=== PATIENT | female | born 1965 | race Asian ===

== ENCOUNTER 2016-09-13 20:36 | Emergency (ER) | payer OTHER ==
[~2016-09-13] VITALS: Ht 148.6 cm; Wt 47.0 kg
[2016-09-13 20:39] VITALS: BP 177/96; PULSE 86; RESP 15; TEMP 99.5; O2SAT 98
--- NOTE | 2016-09-13 20:51 | PD ---
Physical Exam Time Seen by Provider: 20:47 Narrative 51yo F c/o L chest pain yesterday w/ diffisculty breathing yesterday due to pain. Pain is now to the left lateral rib cage area and left upper shoulder area. Denies SOB at this time. Denies heart palpitations. Took 2 ASA 81mg w/ good relief of pain. Patient seen in triage. VS reviewed. Awaiting bed placement. Data Data Last Documented VS Vital Signs Date Time Temp Pulse Resp B/P Pulse Ox O2 Delivery O2 Flow Rate FiO2 09/13/16 20:39 99.5 86 15 177/96 98 Room Air MDM Supervised Visit with WOODY: Parris Ledezma September 13, 2016 20:51
[2016-09-13 21:03] VITALS: O2SAT 99
[2016-09-13] MEDS ORDERED: SODIUM CHLORIDE 0.9% FLUSH 10 ML FLUSH IVF PRN (21:15)
--- NOTE | 2016-09-13 21:17 | PD ---
HPI Chief Complaint: Chest Pain Time Seen by Provider: 21:07 Travel History International Travel<30 days: No Contact w/Intl Traveler<30days: No Traveled to known affect area: No History of Present Illness HPI 51-year-old female with hypertension who presents for evaluation of chest pain. She reports that yesterday at 10 PM while watching TV she developed some pain in the left trapezius region which then seemed to radiate into the left inferior breast and lateral left rib cage. The pain is a sharp pain that is worse with movement, inspiration. There is no exertional component to the pain. The pain has persisted since then which prompted evaluation. She did take 2 aspirin prior to arrival which seemed to help with her symptoms. She endorses a cough that has been ongoing for 3 weeks. Initially was a productive cough, it is now dry. Her has had a similar lingering cough. She denies nausea or vomiting, shortness of breath other she does note pain when breathing in deep, fevers or chills, abdominal pain, calf swelling. She reports recent travel, she flew to and from [place] 3-4 weeks ago. No personal history of coronary artery disease. She notes a negative stress test 3 years ago. Family history includes paternal PR in his 70s. No history of DVT, PE. No tobacco use, no recent surgery, no oral contraceptive use. No other complaints. PFSH Past Medical History Medical History: Denies Significant Hx Diminished Hearing: No Tetanus Vaccination: Unknown Influenza Vaccination: No ?: Not Past Surgical History Surgical History: No Previous Surgery Social History Alcohol Use: No Tobacco Use: No Substance Use: No Allergies-Medications (Allergen,Severity, Reaction): Coded Allergies: No Known Allergies (Verified , 09/13/16) Uncoded Allergies: NKDA (Allergy, Unknown, 12/30/02) NONE (Allergy, Unknown, 12/30/02) Reported Meds & Prescriptions Reported Meds & Active Scripts Active Azithromycin 250 Mg Tab 250 Mg PO DAILY 4 Days Reported Enalapril (Enalapril Maleate) 20 Mg Tab 20 Mg PO DAILY Review of Systems Except as stated in HPI: all other systems reviewed are Neg Physical Exam Narrative GENERAL: Well-developed well-nourished female in no acute distress. Resting comfortably in hospital bed. SKIN: Warm and dry. HEAD: Atraumatic. Normocephalic. EYES: Pupils equal and round. No scleral icterus. No injection or drainage. ENT: No nasal bleeding or discharge. Mucous membranes pink and moist. NECK: Trachea midline. No JVD. CARDIOVASCULAR: Regular rate and rhythm. No murmur appreciated. RESPIRATORY: No accessory muscle use. Clear to auscultation. Breath sounds equal bilaterally. GASTROINTESTINAL: Abdomen soft, non-tender, nondistended. Hepatic and splenic margins not palpable. MUSCULOSKELETAL: No obvious deformities. There is no lower extremity edema. Negative Homans bilaterally. Reproducible tenderness to palpation to the lateral left rib cage. No thoracic rashes noted. NEUROLOGICAL: Awake and alert. No obvious cranial nerve deficits. Motor grossly within normal limits. Normal speech. PSYCHIATRIC: Appropriate mood and affect; insight and judgment normal. Data Data Last Documented VS Vital Signs Date Time Temp Pulse Resp B/P Pulse Ox O2 Delivery O2 Flow Rate FiO2 09/13/16 21:03 99 Room Air 09/13/16 20:51 16 09/13/16 20:39 99.5 86 177/96 Orders Electrocardiogram (09/13/16 21:13) Basic Metabolic Panel (Bmp) (09/13/16 21:13) Ckmb (Isoenzyme) Profile (09/13/16 21:13) Complete Blood Count With Diff (09/13/16 21:13) D-Dimer (09/13/16 21:13) Magnesium (Mg) (09/13/16 21:13) Prothrombin Time / Inr (Pt) (09/13/16 21:13) Act Partial Throm Time (Ptt) (09/13/16 21:13) Troponin I (09/13/16 21:13) Chest, Single Ap (09/13/16 21:13) Ecg Monitoring (09/13/16 21:13) Bilateral Bp Monitoring (09/13/16 21:13) Iv Access Insert/Monitor (09/13/16 21:13) Oximetry (09/13/16 21:13) Oxygen Administration (09/13/16 21:13) Sodium Chloride 0.9% Flush (Ns Flush) (09/13/16 21:15) Azithromycin Inj (Zithromax Inj) (09/13/16 22:30) Ct Pulmonary Angiogram (09/13/16 22:21) Potassium Chloride (Kcl) (09/13/16 22:30) Ketorolac Inj (Toradol Inj) (09/13/16 22:30) Iohexol 350 Inj (Omnipaque 350 Inj) (09/13/16 22:50) Labs Laboratory Tests Test 09/13/16 21:00 White Blood Count 15.5 TH/MM3 Red Blood Count 3.77 MIL/MM3 Hemoglobin 11.9 GM/DL Hematocrit 35.4 % Mean Corpuscular Volume 94.0 FL Mean Corpuscular Hemoglobin 31.7 PG Mean Corpuscular Hemoglobin 33.7 % Concent Red Cell Distribution Width 12.8 % Platelet Count 457 TH/MM3 Mean Platelet Volume 7.8 FL Neutrophils (%) (Auto) 70.6 % Lymphocytes (%) (Auto) 20.4 % Monocytes (%) (Auto) 6.6 % Eosinophils (%) (Auto) 1.6 % Basophils (%) (Auto) 0.8 % Neutrophils # (Auto) 10.9 TH/MM3 Lymphocytes # (Auto) 3.2 TH/MM3 Monocytes # (Auto) 1.0 TH/MM3 Eosinophils # (Auto) 0.2 TH/MM3 Basophils # (Auto) 0.1 TH/MM3 CBC Comment DIFF FINAL Differential Comment Prothrombin Time 10.3 SEC Prothromb Time International 0.9 RATIO Ratio Activated Partial 29.6 SEC Thromboplast Time D-Dimer Quantitative (PE/DVT) 1.14 MG/L FEU Sodium Level 139 MEQ/L Potassium Level 3.2 MEQ/L Chloride Level 102 MEQ/L Carbon Dioxide Level 28.6 MEQ/L Anion Gap 8 MEQ/L Blood Urea Nitrogen 13 MG/DL Creatinine 0.87 MG/DL Estimat Glomerular Filtration 69 ML/MIN Rate Random Glucose 99 MG/DL Calcium Level 8.2 MG/DL Magnesium Level 2.4 MG/DL Total Creatine Kinase 88 U/L Troponin I LESS THAN 0.02 NG/ML MDM Medical Decision Making Medical Screen Exam Complete: Yes Emergency Medical Condition: Yes Medical Record Reviewed: Yes Interpretation(s) EKG reveals sinus rhythm, rate 81, no acute ischemic changes Differential Diagnosis Costochondritis, chest wall pain, pericarditis, myocarditis, bronchitis, pneumonia, pneumothorax, acute coronary syndrome, pulmonary embolism, aortic dissection versus shingles. Narrative Course 51-year-old female has had a cough for 3 weeks presents now with one-day history of pain in the left trapezius, left lateral and anterior lower rib cage that is reproducible with movement, inspiration. On examination the pain on the left lateral rib cage is also reproducible with palpation. Her heart score is reassuringly in the low risk category. Her history and examination most consistent with musculoskeletal chest pain likely secondary to bronchial infection that has been lingering for 3 weeks. Plan is for basic lab work, chest x-ray, EKG, ECG monitoring pulse oximetry. Given her recent travel with pleuritic component to the pain but still low likelihood of pulmonary embolism, a d-dimer has been ordered. Laboratory and imaging studies been reviewed. White count is elevated at 15.5, chest x-ray reveals some left basilar airspace disease and given her 3 week history of cough these symptoms are consistent with pneumonia. Cardiac enzymes are negative. Potassium was mildly low at 3.2, she was given 40 mEq of oral potassium chloride. The patient's d-dimer was elevated and therefore a CT pulmonary angiogram has been ordered. Toradol has been ordered for the patient' s pain, azithromycin for the patient's pneumonia. CT pulmonary angiogram is negative for pulmonary embolus. CT imaging Reveals bilateral parenchymal infiltrates. Discussed signs and symptoms that would warrant returning to the emergency room. Recommended outpatient follow-up with primary care physician. She has an appointment next week already. She is stable for discharge. Diagnosis Primary Impression: Community acquired pneumonia Additional Impressions: Hypokalemia Chest wall pain Additional Instructions: Antibiotic as prescribed. Follow up next week with primary care physician as scheduled. Return for any acutely new or worsening symptoms. Med/Other Pt SpecificInfo: Prescription(s) given Scripts Azithromycin 250 Mg [id number] Mg PO DAILY 4 Days Ref 0 Prov:Payal Fuentes DO 09/13/16 Disposition: 01 DISCHARGE HOME Condition: Stable Jaden Connors September 13, 2016 21:17
[2016-09-13] MEDS ORDERED: ENAL20TA PO (21:26)
[2016-09-13 21:56] LABS: AUTOMATED NEUTROPHIL # 10.9 TH/MM3 (1.8-7.7); BASOPHIL # 0.1 TH/MM3 (0-0.2); BASOPHIL % 0.8 % (0.0-2.0); EOSINOPHIL # 0.2 TH/MM3 (0-0.4); EOSINOPHIL % 1.6 % (0.0-4.0); HEMATOCRIT 35.4 % (35.0-46.0); HEMO FLAGS DIFF FINAL; LYMPH % 20.4 % (9.0-44.0); LYMPHOCYTE # 3.2 TH/MM3 (1.0-4.8); MEAN CORPUSCULAR HEMOGLOBIN 31.7 PG (27.0-34.0); MEAN CORPUSCULAR HGB CONC 33.7 % (32.0-36.0); MONO % 6.6 % (0.0-8.0); NEUT % 70.6 % (16.0-70.0); PLATELET COUNT 457 TH/MM3 (150-450); RED BLOOD COUNT 3.77 MIL/MM3 (4.00-5.30); RED CELL DISTRIBUTION WIDTH 12.8 % (11.6-17.2); WHITE BLOOD COUNT 15.5 TH/MM3 (4.0-11.0)
--- NOTE | 2016-09-13 21:59 | RADRPT ---
EXAM DATE/TIME: 09/13/2016 21:50 [facility] COMPARISON: No previous studies available for comparison. INDICATIONS : Chest pain. MEDICAL HISTORY : Hypertension. SURGICAL HISTORY : None. ENCOUNTER: Initial ACUITY: 1 day PAIN SCORE: 05/02 LOCATION: Bilateral chest FINDINGS: Cardiomegaly. Left basilar parenchymal density is noted possibly an area of airspace disease. No effu sions. Mass felt less likely. Right lung is clear. Osseous structures are intact. CONCLUSION: Left basilar airspace disease is suspected. Followup recommended after appropriate medical therapy. Dre Jacobson MD on September 13, 2016 at 21:58 Board Certified Radiologist. This report was verified electronically.
[2016-09-13 22:11] LABS: APTT (PATIENT) 29.6 SEC (24.3-30.1); INTERNATIONAL NORMALIZED RATIO 0.9 RATIO; PROTHROMBIN TIME - PATIENT 10.3 SEC (9.8-11.6)
[2016-09-13 22:21] LABS: ANION GAP 8 MEQ/L (5-15); BICARBONATE 28.6 MEQ/L (21.0-32.0); BLOOD UREA NITROGEN 13 MG/DL (7-18); CHLORIDE 102 MEQ/L (98-107); GLOMERULAR FILTRATION RATE 69 ML/MIN (>89); MAGNESIUM 2.4 MG/DL (1.5-2.5); POTASSIUM 3.2 MEQ/L (3.5-5.1); SODIUM (NA) 139 MEQ/L (136-145)
[2016-09-13 22:26] LABS: CREATINE KINASE 88 U/L (26-192)
[2016-09-13] MEDS ORDERED: POTASSIUM CHLORIDE 20 MEQ CONTROLLED RELEASE TAB PO ONE (22:30)
[2016-09-13] MEDS ORDERED: AZITHROMYCIN INJ 500 MG in SODIUM CHLOR 0.9% 250 ML INJ 250 ML IV ONE (22:30)
[2016-09-13] MEDS ORDERED: KETOROLAC TROMETHAMINE 30 MG/ML (IVP) VIAL IV PUSH ONE (22:30)
[2016-09-13] MEDS ORDERED: IOHEXOL 350 MG/ML 10 ML VIAL (for RAD DIAG) IV ONE (22:50)
--- NOTE | 2016-09-13 22:56 | RADRPT ---
EXAM DATE/TIME: 09/13/2016 22:37 [facility] COMPARISON: No previous studies available for comparison. INDICATIONS : Left sided chest and shoulder pain. IV CONTRAST: 60 cc Omnipaque 350 (iohexol) IV RADIATION DOSE: 12.47 CTDIvol (mGy) MEDICAL HISTORY : Hypertension. SURGICAL HISTORY : None. ENCOUNTER: Initial ACUITY: 1 day PAIN SCALE: 4/10 LOCATION: Left chest TECHNIQUE: Volumetric scanning of the chest was performed using a pulmonary embolism protocol MIP images were re constructed. Using automated exposure control and adjustment of the mA and/or kV according to patien t size, radiation dose was kept as low as reasonably achievable to obtain optimal diagnostic quality images. FINDINGS: PULMONARY ARTERIES: No filling defects are seen in the pulmonary arteries through the segmental level. LUNGS: Small amount of consolidation within the lingula in the right middle lobe operative site of CAYLA infec tion There is no pneumothorax . No concerning pulmonary nodule is visualized. PLEURAE: There is no pleural thickening or pleural effusion. MEDIASTINUM: There is good visualization of the great vessels of the middle mediastinum. No evidence of mediastin al or hilar adenopathy/mass. MUSCULOSKELETAL: Within normal limits for patient age. MISCELLANEOUS: The visualized upper abdominal organs demonstrate no acute abnormality. CONCLUSION: Normal examination except for bilateral parenchymal infiltrates. No evidence of pulmonary embolism Andres Pressley MD on September 13, 2016 at 22:53 Board Certified Radiologist. This report was verified electronically.
[2016-09-13] MEDS ORDERED: AZIT250T3 PO (23:01)
--- NOTE | 2016-09-14 17:16 | EKG ---
Date Performed: 09/13/2016 Time Performed: 21:01:09 PTAGE: 51 years EKG: Sinus rhythm NORMAL ECG NO PREVIOUS TRACING DOCTOR: Freddie Moreira Interpretating Date/Time 09/14/2016 17:14:59
== END 2016-09-14 00:06 | disposition home or self-care (01) ==
LOC: NEPC 20:36
DX: J18.9 Pneumonia, unspecified organism (principal); E87.6 Hypokalemia; R07.89 Other chest pain; I10 Essential (primary) hypertension; R05 Cough
CPT/HCPCS: 71010; 71275; 80048; 82550; 83735; 84484; 85025; 85379; 85610; 85730; 93005; 96365; 96375; 99285; J0456; J1885; J7050; Q9967